=== PATIENT | female | born 1960 | race Native Hawaiian/Other Pacific Islander ===

== ENCOUNTER 2020-03-11 12:33 | Emergency (ER) | payer OTHER ==
[~2020-03-11] VITALS: Ht 160 cm; Wt 58.1 kg
[2020-03-11 12:49] VITALS: BP 145/92; TEMP 98.4
[2020-03-11 13:37] LABS: PLATELET COUNT 188 K/uL (152-353)
[2020-03-11 14:05] LABS: PARTIAL THROMBOPLASTIN TIME 25.6 SECONDS (24.5-33.6)
== END 2020-03-11 16:00 | disposition home or self-care (01) ==
LOC: ED 12:33
PROVIDERS: Family Medicine
DX: M79.661 Pain in right lower leg (principal); I73.89 Other specified peripheral vascular diseases
CPT/HCPCS: 80053; 81000; 85027; 85610; 85730; 99283